=== PATIENT | female | born 1990 | race Two or more races ===

== ENCOUNTER 2022-11-03 11:39 | Emergency (ER) | payer MEDICAID, OTHER, SELFPAY ==
--- NOTE | 2022-11-03 12:28 | ED.DENTAL ---
HPI - Dental/Oral General Chief complaint: Dental/Oral Stated complaint: Dental Issues Time Seen by Provider: 11/03/22 14:04 Source: patient and pharm tech Mode of arrival: ambulatory Limitations: no limitations History of Present Illness HPI Narrative: 31-year-old female with no significant past medical history presenting to the ED sent in by dentist from [facility] for painful rash to left side of cheek x 4 days. Admits area is worsening. Denies new exposures including soaps/lotion, detergents, known tick or insect bites, fever/chills, sore throat, ear pain, rash other area. Denies being sexually active at this time, concern/history of STI/herpes Related Data Previous Rx's Medication Instructions Recorded mupirocin 2 % topical ointment 1 appl topical BID 7 days #22 grams 11/03/22 valacyclovir 1 gram tablet 1,000 mg PO BID 10 days #20 tabs 11/03/22 (Valtrex) Allergies Allergy/AdvReac Type Severity Reaction Status Date / Time No Known Allergies Allergy Verified 11/03/22 15:13 Review of Systems Review of Systems: Constitutional: No Fever, No Chills ENT/Mouth: No Ear Pain, No Nasal Congestion, No Hoarseness, No sore throat, No Rhinorrhea, No Swallowing Difficulty Cardiovascular: No Chest Pain, No SOB Respiratory: No Cough, No Sputum, No Wheezing Gastrointestinal: No Nausea, No Vomiting, No Abdominal pain Musculoskeletal: No joint pain, No Myalgias, No Joint Swelling Skin: + Skin Lesions, No rash Neuro: No Weakness, No Numbness, No Paresthesias Yes all other systems are reviewed and are negative Constitutional: Constitutional: Reports as per [facility] Past Medical History Attestation statement: The following information was validated with the patient. Source: old records reviewed Social History Social History Advance Directives: No Physical Exam Vital Signs: Vital Signs: Last Vital Signs Temp 97.9 F 11/03/22 12:48 Pulse 82 11/03/22 12:48 Resp 16 11/03/22 12:48 BP 127/79 11/03/22 12:48 Pulse Ox 100 11/03/22 12:48 O2 Del Method Room Air 11/03/22 12:48 BMI result Body Mass Index 22.1 Const: General: cooperative, healthy appearing and no acute distress Orientation/consciousness: patient oriented x3 Limitations: no limitations HEENT: Other: Please refer to image above. Crusted over, vesicular/pustular rash noted to cheek. + erythematous base, tender to palpation. No fluctuance. No appreciable intraoral involvement, uvula midline. No intraoral fluctuance/induration. No meningeal signs. TMs and nasal passage WNL/without lesions Head: Yes normal to inspection and Yes atraumatic Ears: hearing grossly normal bilaterally General nose exam: Normal external nose present Mouth: Normal oral and palatal mucosa present Throat: Yes posterior oropharynx normal, Yes tonsils normal, Yes uvula midline, No peritonsillar mass and No uvula laterally displaced Eyes: General: appearance normal, both eyes and all related structures EOM: EOMs intact bilaterally Neck: Neck: Yes normal visual inspection, Yes no meningeal signs, No anterior neck swelling and No torticollis Resp: Effort & Inspection: normal respiratory effort, no respiratory distress and no stridor Cardio: Rate: regular rate Skin: Wounds: no wounds Neuro: General: patient oriented x3, tone normal and no meningeal signs Gait exam (Neuro): Normal gait present Extrem: General: Yes normal to inspection Course Course Course Narrative: RME - 31 yo Portugese speaking female presents to the ER from [facility] for evaluation of a vesicle like rash on the left side of her chin for the last 2 days. Arrives with a note from provider stating they are recommending workup for a possible systemic condition. Plan: call the provider and inquire their recommendations for workup in the Emergency Department Results discussed with patient including worrisome signs and symptoms and strict return precautions, and when to return to the emergency department. They verbalized understanding and feel safe for discharge at this time. Medical Decision Making Medical Decision Making MDM Narrative: 31-year-old female with no significant past medical history presenting to the ED sent in by dentist from [facility] for painful rash to left side of cheek x 4 days. On exam vital signs stable, NAD, nontoxic appearing, physical exam as above, please refer to image. Called and spoke with Dr. Crowley, dentist who referred patient, he was concern for herpes. Case discussed with the ED attending Dr. Paulino. Concern for herpes vs ? Impetigo vs cellulitis. No evidence of [place] or optic involvement. No mucous membrane or palm/sole involvement Plan: Routine culture, herpes culture, empirically treat with Valtrex and mupirocin Results discussed with patient including worrisome signs and symptoms and strict return precautions, and when to return to the emergency department. They verbalized understanding and feel safe for discharge at this time. Differential Diagnosis Differential Diagnoses: The differential diagnosis associated with the presentation includes As above Lab Data MDM Lab Attestation statement: I reviewed the patient's lab results. External Record Review External record reviewed: Inpatient record, Office record, Outpatient record, Prior outpatient labs, Prior outpatient radiology, Primary care record and Outside ED record Tests considered The following testing was considered but not selected: As above Prescription Management I considered prescription management with: Pain Medication, Antiviral and Antibiotic Discharge Plan Discharge Clinical Impression: Rash Patient Disposition: Home, Self-Care Instructions: Acute Rash (ED) Additional Instructions: We tested her rash for herpes and did a bacterial culture avoid touching the area Valtrex is in antiviral medication please take as prescribed Mupirocin as a topical antibiotic ointment This potentially is contagious with open vesicles, wash your hands Follow-up with her primary care doctor If persists or worsens return to the emergency department Testamos sua erup??o cut?twila para herpes e fizemos sergio cultura bacteriana evite tocar na ?megan Valtrex est? em medica??o antiviral, tome conforme prescrito Mupirocina eloina pomada antibi?josefina t?pica Isso ? potencialmente contagioso com ves?culas abertas, lave as m?os Acompanhamento com seu m?dico de cuidados prim?pineda Se persistir ou piorar, retorne ao pronto-ida Prescriptions: New valacyclovir [Valtrex] 1 gram tablet 1,000 mg PO BID 10 Days Qty: 20 0RF mupirocin 2 % ointment 1 appl topical BID 7 Days Qty: 22 0RF Referrals: Physician,Claude J [Primary Care Provider] - 2 days Interventions: ED Discharge Assessment Last Done: 11/03/22 15:48
[2022-11-03 12:48] VITALS: BP 127/79; PULSE 82; RESP 16; TEMP 36.6; O2SAT 100; BMI 22.1
== END 2022-11-03 15:48 | disposition home or self-care (01) ==
PROVIDERS: Physician Assistant; Emergency Provider Emergency Medicine
DX: R21 Rash and other nonspecific skin eruption (principal); K08.89 Other specified disorders of teeth and supporting structures; Z79.899 Other long term (current) drug therapy
CPT/HCPCS: 36415; 87070; 87147; 87205; 87255; 99282; 99283

== ENCOUNTER 2022-11-05 10:25 | Emergency (ER) | payer MEDICAID, OTHER, SELFPAY ==
[2022-11-05 10:29] VITALS: BP 106/68; PULSE 80; RESP 18; TEMP 36.9; O2SAT 98; BMI 21.1
--- NOTE | 2022-11-05 11:03 | ED_ITS ---
HPI - General Adult General Chief complaint: Skin/Abscess/Foreign Body Stated complaint: facial swelling? Time Seen by Provider: 11/05/22 10:41 Source: patient Mode of arrival: ambulatory Limitations: no limitations History of Present Illness HPI narrative: 31-year-old female w/o reported medical history presents requesting a note to be cleared for a dental procedure as patient was recently seen here on 11/03/2022 and diagnosed with a rash. Her dentist requested more information regarding this. Patient currently using mupirocin and valtrex and reports significant improvment. Patient denies, numbness, tingling,headache, vision changes, dizziness, weakness, cp, sob, nausea, vomiting Related Data Previous Rx's Medication Instructions Recorded mupirocin 2 % topical ointment 1 appl topical BID 7 days #22 grams 11/03/22 valacyclovir 1 gram tablet 1,000 mg PO BID 10 days #20 tabs 11/03/22 (Valtrex) Allergies Allergy/AdvReac Type Severity Reaction Status Date / Time No Known Allergies Allergy Verified 11/03/22 15:13 Review of Systems Review of Systems: Constitutional : No Weight loss, No Fever, No Chills, No Fatigue, No Malaise ENT/Mouth : No sore throat, No Rhinorrhea Eyes: No Eye Pain, No Swelling, No Redness Cardiovascular : No Chest Pain, No SOB, No Dyspnea on Exertion, No Orthopnea, No Edema, No Palpitations Respiratory : No Cough, No Sputum, No Wheezing Gastrointestinal : No Nausea, No Vomiting, No Diarrhea, No Constipation, No abdominal Pain, No Hematochezia, No Melena Genitourinary : No Dysuria, No Urinary Frequency, No Hematuria, Musculoskeletal : No joint pain, No Myalgias, No Joint Swelling Skin : No Skin Lesions, + rash Neuro : No Weakness, No Numbness, No Dizziness, No Headache Psych : No Anxiety/Panic, No Depression All other systems reviewed and are negative Yes all other systems are reviewed and are negative [facility] Past Medical History Attestation statement: The following information was validated with the patient. Source: old records reviewed and nursing notes reviewed Social History Social History Advance Directives: No Physical Exam ED Vital Signs: Vital Signs - 24 hr 11/05/22 10:29 Temperature 98.5 F Pulse Rate 80 Respiratory Rate 18 Blood Pressure 106/68 Pulse Oximetry 98 Oxygen Delivery Method Room Air BMI result Body Mass Index 21.1 vss Appearance: Alert.? Oriented X3.? No acute distress.? Head: Normocephalic, atraumatic, no step-offs or deformities Eyes: Pupils equal, round and reactive to light.? CVS: Normal heart rate and rhythm.? Pulses normal.? Respiratory: No respiratory distress.? Breath sounds normal.? Abdomen: Soft and nontender.? Skin: Skin warm and dry.? Normal skin color.? Normal skin turgor.?+ Crusted over, vesicular/pustular rash noted to cheek. + erythematous base, tender to palpation. No fluctuance. ( improved from image on 11/03/22) Extremities: No lower extremity edema.? No calf ttp. 5/5 strength to bilateral upper and lower extremities Back: No midline tenderness, no C-spine tenderness, full range of motion, no CVA tenderness bilaterally Neuro: Oriented X 3.? No motor deficit.? No sensory deficit. CN 2-12 intact Course Reevaluation(s) Reevaluation #1: Spoke to [facility] Economics Manager who states patient likely just needs note for clearance in terms of rash. Educated patient on diagnosis and treatment plan, answered all question, patient verbalizes understanding. At this time patient will be discharged home, advised to return with new or worsening symptoms. Educated on worrisome signs and symptoms and when to return. At this time I feel comfortable discharge home. Time: 11:15 Reevaluation #2: we are currently in a system down time unable to print patient discharge/ letter. I a type 1 out on [email or web address] and printed for the patient signed and sent on script paper. Patient Name: Enedina Johns? : 1990 May return to work/school on 11/05/22 Restrictions through No restrictions Comment Patient was seen on 11/03/22 and is being treated for a rash which is improving. Which should not interfere with dental work in the near future unless symptoms change or worsen or patient develops fevers, chills, chest pain, shortness of breath, nausea, vomiting. O paciente foi atendido em 11/03/22 e est? sendo tratado por sergio erup??o cut?twila que est? melhorando. O que n?o deve interferir no trabalho odontol?gico em um futuro pr?ximo, a menos que os sintomas mudem ou piorem ou o paciente desenvolva febre, calafrios, sofia no peito, falta de ar, n?usea, v?marcelo. Susanita Christie? PA-C? [phone] Medical Decision Making Medical Decision Making [facility] Narrative: 1104 31-year-old female presents to the emergency department requesting a note stating that she was seen here on 11/15/2022 for a rash, she needs this note in order to get a dental procedure done. No new complaints today. Physical exam significant for Skin warm and dry.? Normal skin color.? Normal skin turgor.?+ Crusted over, vesicular/pustular rash noted to cheek. + erythematous base, tender to palpation. No fluctuance. ( improved from image on 11/03/22) rash on left cheek likely some sort of herpetic infection versus impetigo versus cellulitis. No signs of [place] Lowe, optic nerve involvement, mucous membrane or involvement of palms and soles. No signs of necrotizing infection. No signs of evident abscess. Plan at this time will write patient a note stating she was seen here on 11/03/2022 and is improving with medications, patient should have full evaluation by PCP prior to surgery but because of this rash there should be no reason pat ient cannot get a procedure done. Differential Diagnosis Differential Diagnoses: The differential diagnosis associated with the presentation includes rash on left cheek likely some sort of herpetic infection versus impetigo versus cellulitis. No signs of [place] Lowe, optic nerve involvement, mucous membrane or involvement of palms and soles. No signs of necrotizing infection. No signs of evident abscess. Admission/Observation Consideration of admission/observation: Escalation of care including admission/observation considered Not indicated External Record Review External record reviewed: Inpatient record, Office record, Outpatient record, Prior outpatient labs, Prior outpatient radiology, Primary care record and Outside ED record Core Measures AMI core measures followed: Yes Measure exclusions: not indicated Critical Care Time Critical Care Time Critical Care Time: Yes Total Critical Care Time: 35 Attestation: I attest to this time spent taking care of the patient, obtaining history, physical, reviewing previous visits, speaking to patient's primary provider Discharge Plan Discharge Clinical Impression: Rash Patient Disposition: Home, Self-Care Instructions: Acute Rash (ED), Cold Compress or Soak (ED) Additional Instructions: Take your medications as prescribed. If you were prescribed antibiotics today, it is important that you take your medication to their entirety, do not skip any doses, do not finish them early. Follow-up with your primary care provider this week. Return to the emergency department with new or worsening symptoms. Such as fevers, chills, chest pain, shortness of breath, nausea, vomiting, dizziness, headache, vision changes, lethargy In case of emergency call 911 [place] seus medicamentos conforme prescrito. Se lhe prescreveram antibi?ticos hoje, ? importante que voc? tome a medica??o inteira, n?o pule nenhuma dose, n?o termine antes do tempo. Fa?a o acompanhamento com o seu prestador de cuidados prim?pineda esta semana. Retorne ao departamento de emerg?ncia com sintomas novos ou agravados. Judy eloina febre, calafrios, sofia no peito, falta de ar, n?usea, v?marcelo, tontura, sofia de cabe?a, altera??es na vis?o, letargia Em vinnie de emerg?ncia ligue para o 911 Prescriptions: No Action valacyclovir [Valtrex] 1 gram tablet 1,000 mg PO BID 10 Days Qty: 20 0RF mupirocin 2 % ointment 1 appl topical BID 7 Days Qty: 22 0RF Referrals: Physician,Unknown J [Primary Care Provider] - 2 days Stand Alone Forms: Work/School Release
--- NOTE | 2022-11-05 11:09 | PC.NURSE ---
Provider (BLACK Christie) on the phone with the patient's dental office at this time.
== END 2022-11-05 11:57 | disposition home or self-care (01) ==
PROVIDERS: Emergency Provider Student in an Organized Health Care Education/Training Program
DX: R21 Rash and other nonspecific skin eruption (principal)
CPT/HCPCS: 99282